=== PATIENT | male | born 1940 | race Caucasian/White ===

== ENCOUNTER 2016-07-15 06:52 | Day surgery (SDC) | payer MEDICARE, OTHER ==
[~2016-07-15 06:52] MED LIST: APIX5TAB PO; CARD360C PO; DILTCD240 PO
[2016-07-15] MEDS ORDERED: VANCOMYCIN 1000 MG/NS 250 ML IV SCH ×2 (07:15)
[2016-07-15] MEDS ORDERED: POVIDONE IODINE 5% (ANTISEPSIS KIT) 4 APPLICATIONS EACH NARE SCH (07:15)
[2016-07-15] MEDS ORDERED: ceFAZolin 2 GM PREMIX 50 ML IV SCH (07:15)
[2016-07-15] MEDS ORDERED: CHLORHEXIDINE GLUCONATE 2 % 1 PACK (2 CLOTHS) TOPICAL SCH (07:15)
[2016-07-15] MEDS ORDERED: MUPIROCIN 2% OINT 1 APPLIC/GM SYR NASAL SCH (07:15)
[2016-07-15] MEDS ORDERED: APIX5TAB PO (07:32)
[2016-07-15] MEDS ORDERED: DILT-60 PO (07:32)
[2016-07-15] MEDS ORDERED: MIDAZOLAM HCL 2 MG/2 ML VIAL ONE (08:10)
[2016-07-15] MEDS ORDERED: HEPARIN-NS/PF INJ 500 ML ONE (08:14)
--- NOTE | 2016-07-15 09:28 | MA ---
cc: LC PANIAGUA MD DATE 07/15/[address] Lc Paniagua PREPROCEDURE DIAGNOSIS Atrial fibrillation diagnosis and management. PROCEDURE PERFORMED 1. Moderate IV sedation. 2. Loop recorder insertion. DESCRIPTION OF PROCEDURE The patient was brought to the cardiac catheterization laboratory in the postabsorptive state after informed consent was obtained. 2 mg of Versed and 50 mcg of fentanyl were given for moderate IV sedation. Next, a Easy[employer] LINQ loop recorder was inserted subcutaneously in the left chest. The patient tolerated the procedure well without any apparent complications. Tachybrady pause and atrial fibrillation detection was enabled. The serial number was [id number]. The initial R-wave was 0.22 mV. Lc Paniagua MD GINNA/ALISONL /8:51 AM /9:20 AM
== END 2016-07-15 09:10 | disposition home or self-care (01) ==
LOC: HDOC 06:52 → HDIC 06:52 → HDOC 09:10
PROVIDERS: ATTEND Nuclear Medicine Nuclear Cardiology
DX: I48.91 Unspecified atrial fibrillation (principal); I48.92 Unspecified atrial flutter; I10 Essential (primary) hypertension; R00.2 Palpitations
CPT/HCPCS: 33282; C1764; J0690; J1644; J2250; J3010

== ENCOUNTER 2017-07-20 08:22 | Emergency (ER) | payer MEDICARE, OTHER ==
[~2017-07-20] VITALS: Ht 190.5 cm; Wt 83.0 kg
[2017-07-20] VITALS (8 sets, daily range): BP systolic 96–119; BP diastolic 63–86; PULSE 80–128; RESP 16; TEMP 98.3; O2SAT 96–97
[~2017-07-20 08:22] MED LIST changes: -CARD360C PO; +DILT120C50 PO; -DILTCD240 PO
[2017-07-20] MEDS ORDERED: METOPROLOL TARTRATE 5 MG/5 ML VIAL IV PUSH PRN (08:45)
[2017-07-20] MEDS ORDERED: SODIUM CHLORIDE 0.9% FLUSH 10 ML FLUSH IVF PRN (08:45)
--- NOTE | 2017-07-20 09:08 | RADRPT ---
EXAM DATE/TIME: 07/20/2017 08:52 [place] COMPARISON: CHEST SINGLE AP, September 30, 2014, 12:41. INDICATIONS : Short of breath. MEDICAL HISTORY : Afib SURGICAL HISTORY : loop recorder ENCOUNTER: Initial ACUITY: 2 days PAIN SCORE: 0/10 LOCATION: Bilateral chest FINDINGS: A single view of the chest demonstrates the lungs to be symmetrically aerated without evidence of mas s, infiltrate or effusion. The cardiomediastinal contours are unremarkable. Osseous structures are intact. CONCLUSION: No acute disease. No significant change has occurred. Ashok Babb MD on July 20, 2017 at 9:04 Board Certified Radiologist. This report was verified electronically.
[2017-07-20] MEDS ORDERED: SODIUM CHLOR 0.9% 1000 ML INJ 1,000 ML IV ONE (09:30)
--- NOTE | 2017-07-20 09:32 | PD ---
HPI . Rapid heartbeat Chief Complaint: Cardiac Complaint Time Seen by Provider: 08:32 Travel History International Travel<30 days: No Contact w/Intl Traveler<30days: No Traveled to known affect area: No History of Present Illness HPI Patient presents with chief complaint of a rapid heartbeat. Onset was yesterday morning. He states that he took his usual medication and went back to bed. Throughout the day yesterday he noticed an occasional "skipped beat but that his heart rate was in an acceptable range. However, he awakened again this morning with a rapid heart rate and presented to us. He has a history of atrial fibrillation with rapid ventricular response. He has had 2 previous ablations. He has had at least one episode of AF with RVR following his latest ablation. He admits to fatigue but denies any chest pain or shortness of breath. He has not noted any modifying factors. Symptoms are mild. PFSH Past Medical History Atrial Fibrillation: Yes Blood Disorders: No Heart Rhythm Problems: Yes Cancer: No Cardiac Catheterization: Yes Cardiovascular Problems: Yes High Cholesterol: No Chemotherapy: No Chest Pain: Yes Congestive Heart Failure: No Endocrine: No Gastrointestinal Disorders: No Genitourinary: No Hypertension: No Immune Disorder: No Musculoskeletal: No Neurologic: No Psychiatric: No Reproductive: No Respiratory: No Radiation Therapy: No Tetanus Vaccination: < 5 Years Influenza Vaccination: Yes PNEUMOCCOCAL Vaccine (Year): 2 Past Surgical History Appendectomy: Yes Cardiac Surgery: Yes (loop recorder, ablation x 2) Tonsillectomy: Yes Other Surgery: No (ABD HERNIA REPAIR WITH MESH) Social History Alcohol Use: Yes (2 beers a day) Tobacco Use: No Substance Use: No Allergies-Medications (Allergen,Severity, Reaction): Coded Allergies: No Known Allergies (Verified Adverse Reaction, Unknown, 07/20/17) Reported Meds & Prescriptions Reported Meds & Active Scripts Active Reported Diltiazem CD 24 HR 120 Mg Caper 240 Mg PO DAILY Eliquis (Apixaban) 5 Mg Tab 5 Mg PO BID Review of Systems Except as stated in HPI: all other systems reviewed are Neg Physical Exam Narrative GENERAL: Awake and alert and in no acute distress. SKIN: warm/dry. Normal color and turgor. HEAD: Normocephalic. Atraumatic. EYES: Pupils equal and round. No scleral icterus. No injection or drainage. ENT: No nasal bleeding or discharge. Mucous membranes pink and moist. NECK: Trachea midline. Full range of motion without pain.. CARDIOVASCULAR: Irregularly irregular rate and rhythm with a heart rate of about 130. RESPIRATORY: No accessory muscle use. Clear to auscultation. Breath sounds equal bilaterally. MUSCULOSKELETAL: No obvious deformities. NEUROLOGICAL: Awake and alert. No obvious cranial nerve deficits. Motor grossly within normal limits. Normal speech. PSYCHIATRIC: Appropriate mood and affect; insight and judgment normal. Data Data Last Documented VS Vital Signs Date Time Temp Pulse Resp B/P (MAP) Pulse Ox O2 Delivery O2 Flow Rate FiO2 07/20/17 09:45 89 16 105/74 (84) 97 Room Air 07/20/17 08:25 98.3 Orders Orders Metoprolol Tartrate Inj (Lopressor Inj) (07/20/17 08:45) Electrocardiogram (07/20/17 08:33) Basic Metabolic Panel (Bmp) (07/20/17 08:33) Complete Blood Count With Diff (07/20/17 08:33) Magnesium (Mg) (07/20/17 08:33) Troponin I (07/20/17 08:33) Chest, Single Ap (07/20/17 08:33) Ecg Monitoring (07/20/17 08:33) Iv Access Insert/Monitor (07/20/17 08:33) Oximetry (07/20/17 08:33) Sodium Chloride 0.9% Flush (Ns Flush) (07/20/17 08:45) Sodium Chlor 0.9% 1000 Ml Inj (Ns 1000 M (07/20/17 09:30) Electrocardiogram (07/20/17 ) Labs Laboratory Tests Test 07/20/17 08:00 White Blood Count 9.1 TH/MM3 Red Blood Count 5.52 MIL/MM3 Hemoglobin 17.4 GM/DL Hematocrit 52.8 % Mean Corpuscular Volume 95.5 FL Mean Corpuscular Hemoglobin 31.4 PG Mean Corpuscular Hemoglobin Concent 32.9 % Red Cell Distribution Width 12.3 % Platelet Count 304 TH/MM3 Mean Platelet Volume 7.4 FL Neutrophils (%) (Auto) 61.4 % Lymphocytes (%) (Auto) 27.6 % Monocytes (%) (Auto) 8.1 % Eosinophils (%) (Auto) 2.7 % Basophils (%) (Auto) 0.2 % Neutrophils # (Auto) 5.7 TH/MM3 Lymphocytes # (Auto) 2.5 TH/MM3 Monocytes # (Auto) 0.7 TH/MM3 Eosinophils # (Auto) 0.2 TH/MM3 Basophils # (Auto) 0.0 TH/MM3 CBC Comment DIFF FINAL Differential Comment Blood Urea Nitrogen 25 MG/DL Creatinine 1.20 MG/DL Random Glucose 130 MG/DL Calcium Level 9.5 MG/DL Magnesium Level 2.5 MG/DL Sodium Level 144 MEQ/L Potassium Level 3.9 MEQ/L Chloride Level 110 MEQ/L Carbon Dioxide Level 27.7 MEQ/L Anion Gap 6 MEQ/L Estimat Glomerular Filtration Rate 59 ML/MIN Troponin I LESS THAN 0.02 NG/ML MDM Medical Decision Making Medical Screen Exam Complete: Yes Emergency Medical Condition: Yes Medical Record Reviewed: Yes (h/o AF. meds include Cardizem and Eliquis.) Interpretation(s) EKG shows atrial flutter with a ventricular response of about 130. Repeat EKG shows atrial flutter with a rate of 87. Differential Diagnosis Differential diagnosis of tachycardia includes but is not limited to PSVT, atrial fibrillation with a rapid ventricular response, sinus tachycardia (due to hypovolemia, anemia, thyrotoxicosis, PE) Narrative Course This patient presented with atrial flutter with a rapid ventricular response. Metoprolol was ordered. However, his blood pressure was low. A fluid bolus was ordered. However, his heart rate has now normalized. We will get a repeat EKG. The rhythm is difficult to interpret on the rhythm strip because of artifact. Repeat EKG continues to show atrial flutter but now with a controlled rate at around 80. CBC & BMP Diagram 07/20/17 08:00 Calcium Level 9.5, Magnesium Level 2.5 Troponin < 0.02 The atrial flutter has persisted. The patient reports that he is usually in a sinus rhythm. He is on Eliquis. He would like to go home. 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 I believe that it is safe for him to go home. Physician Communication Physician Communication Dr. Paniagua requests that I increase his Cardizem to 360 mg per day. He will see the patient in the office. Diagnosis Primary Impression: Atrial flutter with rapid ventricular response Patient Instructions: Atrial Flutter (DC), General Instructions Med/Other Pt SpecificInfo: Prescription(s) given Scripts Diltiazem CD 24 HR (Cardizem CD 24 HR) 360 Mg Caper 360 MG PO DAILY, #30 CAP 0 Refills Prov: Carmen Yarbrough MD 07/20/17 Disposition: 01 DISCHARGE HOME Condition: Stable Carmen Yarbrough MD July 20, 2017 09:32
[2017-07-20 09:46] LABS: AUTOMATED NEUTROPHIL # 5.7 TH/MM3 (1.8-7.7); BASOPHIL % 0.2 % (0.0-2.0); EOSINOPHIL # 0.2 TH/MM3 (0-0.4); EOSINOPHIL % 2.7 % (0.0-4.0); HEMATOCRIT 52.8 % (39.0-51.0); HEMOGLOBIN 17.4 GM/DL (13.0-17.0); LYMPH % 27.6 % (9.0-44.0); LYMPHOCYTE # 2.5 TH/MM3 (1.0-4.8); MEAN CELL VOLUME 95.5 FL (80.0-100.0); MEAN CORPUSCULAR HEMOGLOBIN 31.4 PG (27.0-34.0); MEAN CORPUSCULAR HGB CONC 32.9 % (32.0-36.0); MEAN PLATELET VOLUME 7.4 FL (7.0-11.0); MONO % 8.1 % (0.0-8.0); MONOCYTE # 0.7 TH/MM3 (0-0.9); NEUT % 61.4 % (16.0-70.0); PLATELET COUNT 304 TH/MM3 (150-450); RED BLOOD COUNT 5.52 MIL/MM3 (4.50-5.90); RED CELL DISTRIBUTION WIDTH 12.3 % (11.6-17.2); WHITE BLOOD COUNT 9.1 TH/MM3 (4.0-11.0)
[2017-07-20 10:16] LABS: CALCIUM 9.5 MG/DL (8.5-10.1)
[2017-07-20 10:17] LABS: BICARBONATE 27.7 MEQ/L (21.0-32.0); GLUCOSE,RANDOM 130 MG/DL (74-106); MAGNESIUM 2.5 MG/DL (1.5-2.5)
[2017-07-20 10:20] LABS: GLOMERULAR FILTRATION RATE 59 ML/MIN (>89)
[2017-07-20 10:23] LABS: CHLORIDE 110 MEQ/L (98-107); SODIUM (NA) 144 MEQ/L (136-145)
[2017-07-20 10:25] LABS: BLOOD UREA NITROGEN 25 MG/DL (7-18); TROPONIN I LESS THAN 0.02 NG/ML (0.02-0.05)
[2017-07-20] MEDS ORDERED: CARD360C PO (10:45)
[2017-07-20] MEDS ORDERED: CARD120C4 PO (10:48)
--- NOTE | 2017-07-21 11:44 | EKG ---
Date Performed: 07/20/2017 Time Performed: 09:38:18 PTAGE: 76 years EKG: ATRIAL FLUTTER/TACHYCARDIA POSSIBLE RIGHT VENTRICULAR CONDUCTION DELAY INFERIOR MYOCARDIAL INFARCTION ABNORMAL ECG PREVIOUS TRACING : 07/20/2017 08.32 DOCTOR: Mini Us Interpretating Date/Time 07/21/2017 11:42:57
--- NOTE | 2017-07-21 11:47 | EKG ---
Date Performed: 07/20/2017 Time Performed: 08:32:37 PTAGE: 76 years EKG: ATRIAL FLUTTER/TACHYCARDIA WITH RAPID VENTRICULAR RESPONSE WITH ABERRANT CONDUCTION OR VENT RICULAR PREMATURE COMPLEXES POSSIBLE RIGHT VENTRICULAR CONDUCTION DELAY INFERIOR MYOCARDIAL INFARCTIO N ST DEPRESSION, CONSIDER SUBENDOCARDIAL INJURY ABNORMAL ECG INTERPRETATION BASED ON A DEFAULT AGE OF 38 YEARS PREVIOUS TRACING : 12/25/2015 04.46 DOCTOR: Mini Us Interpretating Date/Time 07/21/2017 11:44:14
== END 2017-07-20 11:19 | disposition home or self-care (01) ==
LOC: PHED 08:22
DX: I48.92 Unspecified atrial flutter (principal); I48.91 Unspecified atrial fibrillation
CPT/HCPCS: 71045; 80048; 83735; 84484; 85025; 93005; 96360; 99285; J7030

== ENCOUNTER → 2017-08-02 | Day surgery (SDC) | payer MEDICARE, OTHER ==
[~2017-08-02] MED LIST changes: +ACETAMINOPHEN 1000 MG/100 ML 100 ML IV ONE; +BUPIVACAINE HCL PF 0.25% 30 ML VIAL ONE; +CARD120C4 PO; +CARD360C PO; -DILT120C50 PO; +KETOROLAC TROMETHAMINE 30 MG/ML (IVP) VIAL IV PUSH ONE; +LACTATED RINGER'S 1000 ML INJ 1,000 ML ONE; +PROPOFOL 200 MG/20 ML AMP IV ONE; +VANCOMYCIN HCL 1000 MG VIAL ONE; +ceFAZolin INJ 1,000 MG VIAL ONE
--- NOTE | 2017-08-02 19:56 | MP ---
cc: Jamal Carmona MD DATE OF OPERATION: 08/02/2017 DATE OF PROCEDURE: 08/02/2017 PROCEDURES PERFORMED: 1. Laparoscopic recurrent left inguinal hernia repair with mesh. 2. 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 PREOPERATIVE DIAGNOSIS: Reducible, recurrent left inguinal hernia. POSTOPERATIVE DIAGNOSES: 1. Direct and indirect, reducible left inguinal hernia. 2. Lipoma of the spermatic cord. ANESTHESIA: General endotracheal. SURGEON: Jamal Carmona MD ESTIMATED BLOOD LOSS: 20 mL FLUIDS: 950 mL crystalloid. COMPLICATIONS: None. DRAINS: None. SPECIMENS: Lipoma of the spermatic cord to pathology. PROCEDURE IN DETAIL: The patient was seen in the holding area and the left groin marked by the undersigned and confirmed by the patient. He was taken to the operating room and placed on the operating table in the supine position. After an adequate level of general endotracheal anesthesia was achieved, the lower abdomen and groin were shaved, prepped and draped. A timeout was taken, confirming the correct patient, site and procedure to be performed. The skin and subcutaneous tissue was infiltrated with local anesthetic and an incision made in the umbilicus and carried through the fascia sharply. The peritoneal cavity was directly visualized. A 12-mm balloon trocar was inserted and the balloon inflated. The abdomen was insufflated. The patient was placed in Trendelenburg position. A 12-mm trocar was placed in the left lower quadrant and a 5 mm trocar in the right lower quadrant. Both entered the abdominal cavity under direct vision uneventfully. The peritoneum on the left side was incised and peeled downward. The hernia sac was reduced, which appeared to be an indirect hernia sac. Further dissection medial to the epigastric vessels revealed a small direct hernia defect as well. Krunal's ligament was dissected free from the surrounding loose fatty areolar tissue, as was the tissue off of the anterior abdominal wall. The fascia was swept free from any fatty material until all was clear for angela. A window was created behind the spermatic cord structures. A lipoma of the cord was noted and this was reduced from the indirect hernia defect. This was easily teased off of the spermatic cord structures and submitted for specimen analysis. This allowed for substantial reduction in the diameter of the spermatic cord structures to minimize the risk of recurrence. A 6 x 6 inch piece of Ultrapro mesh was trimmed down to approximately 4 x 6 inches, the edges were rounded, and the mesh was slit longitudinally. The mesh was placed into the pelvis with the inferior leaf brought under the spermatic cord structures. The mesh was then fixed to Krunal's ligament with 4.0 mm angela and then to the transversalis fascia with 4.8 mm angela. The mesh was reapproximated laterally with three 4.8 mm angela. The hernia defect was seen to be completely surrounded by at least 3-5 cm of mesh beyond the edge of any visible defect. When this had been completed, then with hemostasis assured, insufflation was decreased and the peritoneum reapproximated with 4.8 mm angela. When this was completed, insufflation was discontinued and the left and right lower quadrant ports were removed under direct vision. No bleeding was noted from the port sites during desufflation. The laparoscope and umbilical port were then removed. The fascia was closed in the left lower quadrant trocar site with 0 Vicryl suture in a [id number] fashion and then the umbilicus with both 0 Vicryl in a simple interrupted and [id number] fashion. Local anesthetic was injected into the left groin and into the trocar sites before closure of the skin. All 3 trocar sites were closed at the skin with 4-0 Vicryl in interrupted buried fashion. All trocar sites were dressed with Steri-Strips. The patient was extubated and taken back to the recovery room in stable condition. He tolerated the procedure well. MD LEON Caceres/MELISSA/johnnie , 05:12 PM , 05:51 PM BIBI
== END | disposition home or self-care (01) ==
LOC: ESDC 08:10
PROVIDERS: ATTEND Surgery Trauma Surgery
DX: K40.91 Unilateral inguinal hernia, without obstruction or gangrene, recurrent (principal); D17.6 Benign lipomatous neoplasm of spermatic cord
CPT/HCPCS: 00840; 49651; 88304; C1781; J0131; J0690; J1885; J3010; J3370; J7120

== ENCOUNTER 2017-08-08 10:28 | Inpatient (IN) | payer MEDICARE, OTHER ==
[2017-08-08] VITALS (7 sets, daily range): BP systolic 127–156; BP diastolic 66–87; PULSE 60–77; RESP 16–20; TEMP 98.9–102.1; O2SAT 96–97
[~2017-08-08] VITALS: Ht 190.5 cm; Wt 83.4 kg
[~2017-08-08 10:28] MED LIST changes: -ACETAMINOPHEN 1000 MG/100 ML 100 ML IV ONE; -BUPIVACAINE HCL PF 0.25% 30 ML VIAL ONE; -KETOROLAC TROMETHAMINE 30 MG/ML (IVP) VIAL IV PUSH ONE; -LACTATED RINGER'S 1000 ML INJ 1,000 ML ONE; -PROPOFOL 200 MG/20 ML AMP IV ONE; -VANCOMYCIN HCL 1000 MG VIAL ONE; -ceFAZolin INJ 1,000 MG VIAL ONE
[2017-08-08] MEDS ORDERED: DILT-46 PO (11:14)
[2017-08-08 11:19] LABS: BILIRUBIN, URINE NEG (NEG); BLOOD, URINE LARGE (NEG); GLUCOSE,URINE NEG (NEG); KETONE, URINE NEG (NEG); NITRITE,URINE POS (NEG); URINE LEUKOCYTE ESTERASE SMALL (NEG)
[2017-08-08 11:22] LABS: URINE COLOR RED (YELLW/STRAW)
[2017-08-08 11:24] LABS: RBC, URINE INNUM /hpf (0-3)
[2017-08-08] MEDS ORDERED: LIDOCAINE 2% JELLY 30 ML TUBE TOPICAL ONE (11:30)
--- NOTE | 2017-08-08 11:37 | PD ---
HPI Chief Complaint: Complaint Time Seen by Provider: 11:20 Travel History International Travel<30 days: No Contact w/Intl Traveler<30days: No Traveled to known affect area: No History of Present Illness HPI 76-year-old male complains of dysuria, frequency, hematuria and urinary retention. Patient status post laparoscopic left inguinal hernia repair with mesh and excision of lipoma on the spermatic cord by Dr. Carmona on August 02, 2017. Patient had Ellington cath inserted for the procedure. Patient had Ellington cath removal yesterday by Dr. Carmona. Patient started having dysuria, frequency last night. Patient started having material since this morning. Patient states that he has decrease in urine output and feeling the bladder distended. Patient denies any headache. Patient denies any chest pain or shortness of breath. Patient states that he has mild discomfort on the abdomen suprapubic area. Patient denies any back pain. Patient denies any fever chills. Patient has history of atrial fibrillation and on Eliquis. Patient stopped taking Eliquis several days prior to the surgery and resume taking Eliquis the day after surgery. Last dose of Eliquis was this morning. PFSH Past Medical History Atrial Fibrillation: Yes Blood Disorders: No Heart Rhythm Problems: Yes Cancer: No Cardiac Catheterization: Yes Cardiovascular Problems: Yes High Cholesterol: No Chemotherapy: No Chest Pain: Yes Congestive Heart Failure: No Diminished Hearing: Yes Endocrine: No Gastrointestinal Disorders: No Genitourinary: No Hypertension: No Immune Disorder: No Musculoskeletal: No Neurologic: No Psychiatric: No Reproductive: No Respiratory: No Radiation Therapy: No Tetanus Vaccination: < 5 Years Influenza Vaccination: Yes PNEUMOCCOCAL Vaccine (Year): 2 ?: Not Past Surgical History Appendectomy: Yes Cardiac Surgery: Yes (loop recorder, ablation x 2) Tonsillectomy: Yes Other Surgery: Yes (ABD HERNIA REPAIR WITH MESH) Social History Alcohol Use: Yes (2 beers a day) Tobacco Use: No Substance Use: No Allergies-Medications (Allergen,Severity, Reaction): Coded Allergies: No Known Allergies (Verified Adverse Reaction, Unknown, 08/08/17) Reported Meds & Prescriptions Reported Meds & Active Scripts Active Reported Diltiazem ER 24 HR 360 Mg Caper 360 Mg PO DAILY Eliquis (Apixaban) 5 Mg Tab 5 Mg PO BID Review of Systems General / Constitutional: No: Fever Eyes: No: Visual changes HENT: No: Headaches Cardiovascular: No: Chest Pain or Discomfort Respiratory: No: Shortness of Breath Gastrointestinal: Positive: Abdominal Pain Genitourinary: Positive: Frequency, Dysuria, Hematuria Musculoskeletal: No: Pain Skin: No Rash Neurologic: No: Weakness Psychiatric: No: Depression Endocrine: No: Polydipsia Hematologic/Lymphatic: No: Easy Bruising Physical Exam Narrative GENERAL: Well-nourished, well-developed patient. SKIN: Focused skin assessment warm/dry. HEAD: Normocephalic. EYES: No scleral icterus. No injection or drainage. NECK: Supple, trachea midline. No JVD or lymphadenopathy. CARDIOVASCULAR: Regular rate and rhythm without murmurs, gallops, or rubs. RESPIRATORY: Breath sounds equal bilaterally. No accessory muscle use. GASTROINTESTINAL: Abdomen soft, non-tender, nondistended. MUSCULOSKELETAL: No cyanosis, or edema. BACK: Nontender without obvious deformity. No CVA tenderness. exam: Patient has some reddish stained underwear. No active bleeding from the urethra. Bladder distended on percussion. No tenderness on palpation of testicle or scrotum. No penile lesion noted. Neurologic exam normal. Data Data Last Documented VS Vital Signs Date Time Temp Pulse Resp B/P (MAP) Pulse Ox O2 Delivery O2 Flow Rate FiO2 08/08/17 12:03 60 18 144/69 (94) 96 Room Air 08/08/17 10:37 98.9 Orders Orders Urinalysis - C+S If Indicated (08/08/17 10:42) Urine Culture (08/08/17 11:10) Complete Blood Count With Diff (08/08/17 11:28) Comprehensive Metabolic Panel (08/08/17 11:28) Iv Access Insert/Monitor (08/08/17 11:28) Ecg Monitoring (08/08/17 11:28) Oximetry (08/08/17 11:28) Urinary Catheter Insert/Apply (08/08/17 11:28) Lidocaine 2% Jelly (Xylocaine 2% Jelly) (08/08/17 11:30) Electrocardiogram (08/08/17 ) Sodium Chlor 0.9% 1000 Ml Inj (Ns 1000 M (08/08/17 12:30) Prothrombin Time / Inr (Pt) (08/08/17 12:44) Act Partial Throm Time (Ptt) (08/08/17 12:44) Labs Laboratory Tests Test 08/08/17 11:10 08/08/17 11:41 Urine Collection Type CLEAN CATCH Urine Color RED Urine Turbidity MARKED Urine pH 7.0 Urine Specific [place] 1.025 Urine Protein 300 OR GREATER mg/dL Urine Glucose (UA) NEG mg/dL Urine Ketones NEG mg/dL Urine Occult Blood LARGE Urine Nitrite POS Urine Bilirubin NEG Urine Urobilinogen 0.2 MG/DL Urine Leukocyte Esterase SMALL Urine RBC INNUM /hpf Urine WBC 50-99 /hpf Microscopic Urinalysis Comment CULTURE INDICATED White Blood Count 12.9 TH/MM3 Red Blood Count 4.99 MIL/MM3 Hemoglobin 14.8 GM/DL Hematocrit 47.5 % Mean Corpuscular Volume 95.2 FL Mean Corpuscular Hemoglobin 29.7 PG Mean Corpuscular Hemoglobin Concent 31.2 % Red Cell Distribution Width 12.1 % Platelet Count 292 TH/MM3 Mean Platelet Volume 6.6 FL Neutrophils (%) (Auto) 81.5 % Lymphocytes (%) (Auto) 8.9 % Monocytes (%) (Auto) 5.2 % Eosinophils (%) (Auto) 0.9 % Basophils (%) (Auto) 3.5 % Neutrophils # (Auto) 10.4 TH/MM3 Lymphocytes # (Auto) 1.2 TH/MM3 Monocytes # (Auto) 0.7 TH/MM3 Eosinophils # (Auto) 0.1 TH/MM3 Basophils # (Auto) 0.5 TH/MM3 CBC Comment AUTO DIFF Differential Comment AUTO DIFF CONFIRMED Blood Urea Nitrogen 19 MG/DL Creatinine 1.00 MG/DL Random Glucose 121 MG/DL Total Protein 7.4 GM/DL Albumin 3.5 GM/DL Calcium Level 9.2 MG/DL Alkaline Phosphatase 67 U/L Aspartate Amino Transf (AST/SGOT) 18 U/L Alanine Aminotransferase (ALT/SGPT) 36 U/L Total Bilirubin 0.9 MG/DL Sodium Level 140 MEQ/L Potassium Level 4.6 MEQ/L Chloride Level 106 MEQ/L Carbon Dioxide Level 29.7 MEQ/L Anion Gap 4 MEQ/L Estimat Glomerular Filtration Rate 72 ML/MIN MDM Medical Decision Making Medical Screen Exam Complete: Yes Emergency Medical Condition: Yes Interpretation(s) 12:43 PM. CBC WBC 12.9. 81 neutrophil. CMP BUN 19. GFR 72. UA positive for RBC, WBC. Differential Diagnosis Differential diagnosis including urethritis, UTI, hematuria, bladder outlet obstruction. Narrative Course 76-year-old male with dysuria, frequency, hematuria and bladder obstruction. Patient is on Eliquis for paroxysmal atrial fibrillation. Ellington cath applied. Normal saline solution 100 cc an hour. Ellington cath inserted. Patient has 300 cc of gross hematuria. Dr. Carmona contacted. Advised medical service and urology consultation. I spoke with Dr. Faustin urologist. I spoke with Dr. 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 Advised to hold Eliquis. Check serial H& H. Advised [facility] if persistent excessive bleeding. Diagnosis Primary Impression: Hematuria Qualified Codes: R31.0 - Gross hematuria Additional Impression: Paroxysmal atrial fibrillation Kingsley Roman MD Aug 08, 2017 11:37
[2017-08-08 11:50] LABS: AUTOMATED NEUTROPHIL # 10.4 TH/MM3 (1.8-7.7); BASOPHIL # 0.5 TH/MM3 (0-0.2); BASOPHIL % 3.5 % (0.0-2.0); EOSINOPHIL # 0.1 TH/MM3 (0-0.4); EOSINOPHIL % 0.9 % (0.0-4.0); HEMATOCRIT 47.5 % (39.0-51.0); HEMOGLOBIN 14.8 GM/DL (13.0-17.0); LYMPH % 8.9 % (9.0-44.0); LYMPHOCYTE # 1.2 TH/MM3 (1.0-4.8); MEAN CELL VOLUME 95.2 FL (80.0-100.0); MEAN CORPUSCULAR HEMOGLOBIN 29.7 PG (27.0-34.0); MEAN CORPUSCULAR HGB CONC 31.2 % (32.0-36.0); MEAN PLATELET VOLUME 6.6 FL (7.0-11.0); MONO % 5.2 % (0.0-8.0); MONOCYTE # 0.7 TH/MM3 (0-0.9); NEUT % 81.5 % (16.0-70.0); PLATELET COUNT 292 TH/MM3 (150-450); RED BLOOD COUNT 4.99 MIL/MM3 (4.50-5.90); RED CELL DISTRIBUTION WIDTH 12.1 % (11.6-17.2); WHITE BLOOD COUNT 12.9 TH/MM3 (4.0-11.0)
[2017-08-08 11:58] LABS: CHLORIDE 106 MEQ/L (98-107); SODIUM (NA) 140 MEQ/L (136-145)
[2017-08-08 12:02] LABS: ALBUMIN 3.5 GM/DL (3.4-5.0); BICARBONATE 29.7 MEQ/L (21.0-32.0); BLOOD UREA NITROGEN 19 MG/DL (7-18); CALCIUM 9.2 MG/DL (8.5-10.1); GLUCOSE,RANDOM 121 MG/DL (74-106)
[2017-08-08 12:05] LABS: ALT (GPT) 36 U/L (12-78); AST (GOT) 18 U/L (15-37); GLOMERULAR FILTRATION RATE 72 ML/MIN (>89)
[2017-08-08 12:07] LABS: TOTAL BILIRUBIN ADULT 0.9 MG/DL (0.2-1.0); TOTAL PROTEIN 7.4 GM/DL (6.4-8.2)
[2017-08-08 12:08] LABS: ALKALINE PHOSPHATASE 67 U/L (45-117)
[2017-08-08] MEDS ORDERED: SODIUM CHLOR 0.9% 1000 ML INJ 1,000 ML IV SCH (12:30)
[2017-08-08 13:20] LABS: INTERNATIONAL NORMALIZED RATIO 1.1 RATIO; PROTHROMBIN TIME - PATIENT 10.8 SEC (9.8-11.6)
[2017-08-08] MEDS ORDERED: BISACODYL 10 MG SUPP RECTAL PRN (13:30)
[2017-08-08] MEDS ORDERED: SENNOSIDES 8.6 MG TAB PO PRN (13:30)
[2017-08-08] MEDS ORDERED: SODIUM CHLORIDE 0.9% FLUSH 10 ML FLUSH IV FLUSH PRN (13:30)
[2017-08-08] MEDS ORDERED: TEMAZEPAM 15 MG CAP PO PRN (13:30)
[2017-08-08] MEDS ORDERED: LACTULOSE SYRUP 20 GM/30 ML CUP PO PRN (13:30)
[2017-08-08] MEDS ORDERED: cefTRIAXone INJ 1,000 MG in SODIUM CHLORIDE 0.9% INJ 100 ML IV ONE (13:30)
[2017-08-08] MEDS ORDERED: MAGNESIUM HYDROXIDE SUSP 30 ML CUP PO PRN (13:30)
[2017-08-08] MEDS ORDERED: NALOXONE HCL 0.4 MG/ML AMP IV PUSH PRN (13:30)
[2017-08-08] MEDS ORDERED: ONDANSETRON HCL 4 MG/2 ML VIAL IVP PRN (13:30)
[2017-08-08] MEDS: SODIUM CHLOR 0.45% 1000 ML INJ 1,000 ML IV SCH (13:52)
[2017-08-08] MEDS: TAMSULOSIN HCL 0.4 MG CAP PO SCH (14:03)
--- NOTE | 2017-08-08 14:16 | PD.CONS ---
[facility] Service Urology Consult Requested By Dr. Roman Reason for Consult Gross hematuria Primary Care Physician Becca Andrews MD Diagnosis: History of Present Illness 76-year-old gentleman with no prior urologic history who presents now with gross hematuria. Patient does have a history of atrial fibrillation and has been on anticoagulation therapy with Eliquis. He underwent a left inguinal hernia repair 1 week ago and postoperatively developed urinary retention that required insertion of a Ellington catheter. Patient followed up with his general surgeon yesterday and had his Ellington catheter removed. The patient reports that initially he was voiding without any problems however during the course of the night he developed dysuria and progressive difficulty with urination. By this morning he noted grossly bloody urine and presented to the emergency room for evaluation. His ground water pump installer has already been consulted and he agreed that the patient should stop the Eliquis for the time being as he is presently in normal sinus rhythm. At the time of the urologic consultation the patient did have an indwelling Ellington catheter which was draining medium red colored urine. Upon further questioning the patient denies any prior history of hematuria or other urologic disorders. Review of Systems Constitutional: DENIES: Fever, Chills Cardiovascular: DENIES: Chest pain Gastrointestinal: DENIES: Abdominal pain Genitourinary: COMPLAINS OF: Urgency, Hematuria Musculoskeletal: DENIES: Back pain Except as stated in HPI: all other systems reviewed are Neg Past Family Social History Past Medical History Atrial fibrillation Past Surgical History Status post recent left inguinal herniorrhaphy Status post cardiac ablation procedure 2 Status post right inguinal hernia repair Status post appendectomy Status post tonsillectomy Reported Medications Refer to EMR Allergies: Coded Allergies: No Known Allergies (Verified Adverse Reaction, Unknown, 08/08/17) Active Ordered Medications Refer to EMR Family History Alzheimer's disease Social History Denies tobacco, alcohol or intravenous drug abuse history Physical Exam Vital Signs Date Time Temp Pulse Resp B/P (MAP) Pulse Ox O2 Delivery O2 Flow Rate FiO2 08/08/17 13:26 63 18 140/70 (93) 97 Room Air 08/08/17 12:03 60 18 144/69 (94) 96 Room Air 08/08/17 11:43 96 Room Air 08/08/17 10:59 18 08/08/17 10:37 98.9 72 16 156/87 (110) 97 Physical Exam GENERAL: This is a well-nourished, well-developed patient, in no apparent distress. SKIN: No rashes, ecchymoses or lesions. Cool and dry. HEAD: Atraumatic. Normocephalic. No temporal or scalp tenderness. EYES: Pupils equal round and reactive. Extraocular motions intact. No scleral icterus. No injection or drainage. ENT: Nose without bleeding, purulent drainage or septal hematoma. Throat without erythema, tonsillar hypertrophy or exudate. Uvula midline. Airway patent. NECK: Trachea midline. No JVD or lymphadenopathy. Supple, nontender, no meningeal signs. CARDIOVASCULAR: Regular rate and rhythm without murmurs, gallops, or rubs. RESPIRATORY: Clear to auscultation. Breath sounds equal bilaterally. No wheezes , rales, or rhonchi. GASTROINTESTINAL: Abdomen soft, non-tender, nondistended. No hepato-splenomegaly , or palpable masses. No guarding. GENITOURINARY:Ellington in place draining medium red urine, bladder not distended MUSCULOSKELETAL: Extremities without clubbing, cyanosis, or edema. No joint tenderness, effusion, or edema noted. No calf tenderness. Negative Homans sign bilaterally. NEUROLOGICAL: Awake and alert. Cranial nerves II through XII intact. Motor and sensory grossly within normal limits. Five out of 5 muscle strength in all muscle groups. Normal speech. Lab results reviewed: Yes Laboratory Tests Test 08/08/17 11:10 08/08/17 11:41 Urine Collection Type CLEAN CATCH Urine Color RED Urine Turbidity MARKED Urine pH 7.0 Urine Specific [place] 1.025 Urine Protein 300 OR GREATER Urine Glucose (UA) NEG Urine Ketones NEG Urine Occult Blood LARGE Urine Nitrite POS Urine Bilirubin NEG Urine Urobilinogen 0.2 Urine Leukocyte Esterase SMALL Urine RBC INNUM Urine WBC 50-99 Microscopic Urinalysis Comment CULTURE INDICATED White Blood Count 12.9 Red Blood Count 4.99 Hemoglobin 14.8 Hematocrit 47.5 Mean Corpuscular Volume 95.2 Mean Corpuscular Hemoglobin 29.7 Mean Corpuscular Hemoglobin Concent 31.2 Red Cell Distribution Width 12.1 Platelet Count 292 Mean Platelet Volume 6.6 Neutrophils (%) (Auto) 81.5 Lymphocytes (%) (Auto) 8.9 Monocytes (%) (Auto) 5.2 Eosinophils (%) (Auto) 0.9 Basophils (%) (Auto) 3.5 Neutrophils # (Auto) 10.4 Lymphocytes # (Auto) 1.2 Monocytes # (Auto) 0.7 Eosinophils # (Auto) 0.1 Basophils # (Auto) 0.5 CBC Comment AUTO DIFF Differential Comment AUTO DIFF CONFIRMED Prothrombin Time 10.8 Prothromb Time International Ratio 1.1 Activated Partial Thromboplast Time 27.0 Blood Urea Nitrogen 19 Creatinine 1.00 Random Glucose 121 Total Protein 7.4 Albumin 3.5 Calcium Level 9.2 Alkaline Phosphatase 67 Aspartate Amino Transf (AST/SGOT) 18 Alanine Aminotransferase (ALT/SGPT) 36 Total Bilirubin 0.9 Sodium Level 140 Potassium Level 4.6 Chloride Level 106 Carbon Dioxide Level 29.7 Anion Gap 4 Estimat Glomerular Filtration Rate 72 Date/Time Source Procedure Growth Status 08/08/17 11:10 Urine Clean Catch Urine Culture Pending Received Result Diagram: 08/08/17 1141 08/08/17 1141 Assessment and Plan Assessment and Plan UROLOGIC IMPRESSION: 1. Gross hematuria of indeterminant etiology exacerbated by Eliquis 2. Recent development postoperative urinary retention RECOMMENDATIONS: 1. DC Eliquis and resume only after urine remains yellow in appearance for 48 hours 2. Maintain Ellington to gravity and irrigate prn clots 3. DC Ellington (can be performed at my office) after urine remains yellow in appearance for 48 to 72 hours 4. Flomax 0.4mg po daily Johnathon Faustin MD Aug 08, 2017 14:16
--- NOTE | 2017-08-08 16:17 | HHI.HP ---
[facility] Becca Andrews MD Admission Diagnosis Gross hematuria. Paroxysmal atrial fibrillation. Diagnoses: (1) Hematuria Diagnosis: Principal Chief Complaint: Urinating blood Travel History International Travel<30 Days: No Contact w/Intl Traveler <30 Da: No Traveled to Known Affected Are: No History of Present Illness 76-year-old male with known history of atrial fibrillation on anticoagulation, who underwent recent surgery by Dr. 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 Prior to discharge from the hospital after surgery patient was unable to urinate with outlet obstruction. Patient had Ellington catheter remain in place for approximately 5 days and they followed up with Dr. Carmona last evening at 7 PM. The Ellington was removed at that time and the patient went home without any complications. Patient indicates that he was urinating fine but throughout the evening started developing more burning sensation on urination. And then this morning when he got up he noticed that he was urinating blood so he called his physician who notified him to go to the emergency department for evaluation. Patient did have workup done which did show gross hematuria. Ellington catheter was reinserted. An ER physician recommended that the patient be observed in the hospital for further evaluation and management. Urology was consulted for further recommendations. Review of Systems Genitourinary: COMPLAINS OF: Hematuria, Dysuria Except as stated in HPI: all other systems reviewed are Neg Past Family Social History Past Medical History Atrial fibrillation Past Surgical History Tonsillectomy Appendectomy Loop recorder placement Cardiac ablation 2 Cardiac catheterization Right inguinal hernia repair 8 years ago Left inguinal hernia repair 08/02/17 Reported Medications Reported Meds & Active Scripts Active Reported Diltiazem ER 24 HR 360 Mg Caper 360 Mg PO DAILY Eliquis (Apixaban) 5 Mg Tab 5 Mg PO BID Allergies: Coded Allergies: No Known Allergies (Verified Adverse Reaction, Unknown, 08/08/17) Family History Family history was reviewed and his mother lived to 99 years old with Alzheimer. Father in his 80s Social History Patient denies any tobacco, alcohol or illicit drug use Physical Exam Vital Signs Vital Signs Date Time Temp Pulse Resp B/P (MAP) Pulse Ox O2 Delivery O2 Flow Rate FiO2 08/08/17 15:10 99.3 62 20 154/70 (98) 97 08/08/17 14:47 64 18 97 08/08/17 13:26 63 18 140/70 (93) 97 Room Air 08/08/17 12:03 60 18 144/69 (94) 96 Room Air 08/08/17 11:43 96 Room Air 08/08/17 10:59 18 08/08/17 10:37 98.9 72 16 156/87 (110) 97 Physical Exam GENERAL: Well-developed, well-nourished, in no acute distress. alert and orientated HEENT: Head is normocephalic without any lesions or masses noted. Facial features are symmetric. Eyes: Pupils equal round reactive to light. Extraocular muscles are intact. Conjunctivae were clear. Oropharyngeal: Pharynx without any erythema edema. Tongue is midline without deviation. Buccal mucosa is moist without any masses or lesions NECK: Supple without any masses. Trachea midline no deviation. No JVD, no bruits are appreciated CARDIAC: Regular rhythm, regular rate. S1/S2 are heard. No murmurs gallops or rubs. LUNGS: Clear to auscultation bilaterally. No wheeze, rhonchi or rales. No use of accessory muscles on inspiration or expiration. ABDOMEN: Soft, nontender. Nondistended. Bowel sounds heard in all 4 quadrants. No organomegaly or masses. Negative rebound, negative guarding, Ellington in place with obvious hematuria and clots EXTREMITIES: No edema, pulses are equal bilaterally. No cyanosis or clubbing NEUROLOGY: Mood and affect appear appropriate. Cranial nerves II through XII grossly intact. Muscle strength 5/5 in upper and lower extremities bilaterally. Deep tendon reflexes are 2+ in upper and lower extremities bilaterally. Laboratory Laboratory Tests Test 08/08/17 11:10 08/08/17 11:41 Urine Collection Type CLEAN CATCH Urine Color RED Urine Turbidity MARKED Urine pH 7.0 Urine Specific [place] 1.025 Urine Protein 300 OR GREATER Urine Glucose (UA) NEG Urine Ketones NEG Urine Occult Blood LARGE Urine Nitrite POS Urine Bilirubin NEG Urine Urobilinogen 0.2 Urine Leukocyte Esterase SMALL Urine RBC INNUM Urine WBC 50-99 Microscopic Urinalysis Comment CULTURE INDICATED White Blood Count 12.9 Red Blood Count 4.99 Hemoglobin 14.8 Hematocrit 47.5 Mean Corpuscular Volume 95.2 Mean Corpuscular Hemoglobin 29.7 Mean Corpuscular Hemoglobin Concent 31.2 Red Cell Distribution Width 12.1 Platelet Count 292 Mean Platelet Volume 6.6 Neutrophils (%) (Auto) 81.5 Lymphocytes (%) (Auto) 8.9 Monocytes (%) (Auto) 5.2 Eosinophils (%) (Auto) 0.9 Basophils (%) (Auto) 3.5 Neutrophils # (Auto) 10.4 Lymphocytes # (Auto) 1.2 Monocytes # (Auto) 0.7 Eosinophils # (Auto) 0.1 Basophils # (Auto) 0.5 CBC Comment AUTO DIFF Differential Comment AUTO DIFF CONFIRMED Prothrombin Time 10.8 Prothromb Time International Ratio 1.1 Activated Partial Thromboplast Time 27.0 Blood Urea Nitrogen 19 Creatinine 1.00 Random Glucose 121 Total Protein 7.4 Albumin 3.5 Calcium Level 9.2 Alkaline Phosphatase 67 Aspartate Amino Transf (AST/SGOT) 18 Alanine Aminotransferase (ALT/SGPT) 36 Total Bilirubin 0.9 Sodium Level 140 Potassium Level 4.6 Chloride Level 106 Carbon Dioxide Level 29.7 Anion Gap 4 Estimat Glomerular Filtration Rate 72 Date/Time Source Procedure Growth Status 08/08/17 11:10 Urine Clean Catch Urine Culture Pending Received Result Diagram: 08/08/17 1141 08/08/17 1141 Caprini VTE Risk Assessment Caprini VTE Risk Assessment: Mod/High Risk (score >= 2) VTE Pharm Contraindication: Active bleeding Caprini Risk Assessment Model Point Value = 1 Point Value = 2 Point Value = 3 Point Value = 5 Age 41-60 Minor surgery BMI > 25 kg/m2 Swollen legs Varicose veins or History of unexplained or recurrent spontaneous Oral contraceptives or hormone replacement Sepsis (< 1 month) Serious lung disease, including pneumonia (< 1 month) Abnormal pulmonary function Acute myocardial infarction Congestive heart failure (< 1 month) History of inflammatory bowel disease Medical patient at bed rest Age 61-74 Arthroscopic surgery Major open surgery (> 45 min) Laparoscopic surgery (> 45 min) Malignancy Confined to bed (> 72 hours) Immobilizing plaster cast Central venous access Age >= 75 History of VTE Family history of VTE Factor V Leiden Prothrombin [id number] Lupus anticoagulant Anticardiolipin antibodies Elevated serum homocysteine Heparin-induced thrombocytopenia Other congenital or acquired thrombophilia Stroke (< 1 month) Elective arthroplasty Hip, pelvis, or leg fracture Acute spinal cord injury (< 1 month) Prophylaxis Regimen Total Risk Factor Score Risk Level Prophylaxis Regimen 0-1 Low Early ambulation 2 Moderate Order ONE of the following: *Sequential Compression Device (SCD) *Heparin 5000 units SQ BID 3-4 Higher Order ONE of the following medications: *Heparin 5000 units SQ TID *Enoxaparin/Lovenox 40 mg SQ daily (WT < 150 kg, CrCl > 30 mL/min) *Enoxaparin/Lovenox 30 mg SQ daily (WT < 150 kg, CrCl > 10-29 mL/min) *Enoxaparin/Lovenox 30 mg SQ BID (WT < 150 kg, CrCl > 30 mL/min) AND/OR *Sequential Compression Device (SCD) 5 or more Highest Order ONE of the following medications: *Heparin 5000 units SQ TID (Preferred with Epidurals) *Enoxaparin/Lovenox 40 mg SQ daily (WT < 150 kg, CrCl > 30 mL/min) *Enoxaparin/Lovenox 30 mg SQ daily (WT < 150 kg, CrCl > 10-29 mL/min) *Enoxaparin/Lovenox 30 mg SQ BID (WT < 150 kg, CrCl > 30 mL/min) AND *Sequential Compression Device (SCD) Assessment and Plan Assessment and Plan Hematuria complicated by use of Eliquis -Patient with recent urinary retention from surgery, Ellington was used for 5 days and just removed last evening 7 PM -Ellington catheter was inserted in the emergency department, will maintain Ellington catheter at this time -Start Flomax daily -Urology consulted and recommended discontinuation of Eliquis at this time, may resume once urine remains yellow for at least 48 hours. Recommending discontinuation of Ellington after urine remains yellow after 48-72 hours, may be done in his office History of atrial fibrillation -Currently sinus rhythm at this time -Was anticoagulated on Eliquis, being held at this time due to hematuria DVT prevention -Sequential compression devices -Avoid chemical prophylaxis at this time secondary to gross hematuria Problem Qualifiers (1) Hematuria: Qualified Codes: R31.0 - Gross hematuria Yaya Ambrosio Aug 08, 2017 16:17
--- NOTE | 2017-08-08 17:15 | EKG ---
Date Performed: 08/08/2017 Time Performed: 11:49:27 PTAGE: 76 years EKG: SINUS BRADYCARDIA POSSIBLE LEFT ATRIAL ENLARGEMENT BORDERLINE LEFT AXIS DEVIATION POSSIBLE RIGHT VENTRICULAR CONDUCTION DELAY BORDERLINE ECG PREVIOUS TRACING : 07/20/2017 09.38 Compared to previous tracing, a flutter no longer present DOCTOR: Franny Silva Interpretating Date/Time 08/08/2017 17:15:00
[2017-08-08] MEDS: ACETAMINOPHEN 325 MG TAB PO PRN (20:06)
[2017-08-09] VITALS: BP 120/64; PULSE 80; RESP 20; TEMP 100.7; O2SAT 96
[2017-08-09] MEDS: ACETAMINOPHEN 325 MG TAB PO PRN ×2 (00:28→13:34)
[2017-08-09] MEDS: SODIUM CHLORIDE 0.9% FLUSH 10 ML FLUSH IV FLUSH SCH ×3 (00:28→21:00)
[2017-08-09] MEDS: SODIUM CHLOR 0.45% 1000 ML INJ 1,000 ML IV SCH ×2 (00:28→16:13)
[2017-08-09 03:50] VITALS: BP 105/55; PULSE 51; RESP 18; TEMP 101.4; O2SAT 94
[2017-08-09 04:00] VITALS: TEMP 99.5
[2017-08-09 06:39] LABS: AUTOMATED NEUTROPHIL # 13.4 TH/MM3 (1.8-7.7); BASOPHIL % 0.2 % (0.0-2.0); EOSINOPHIL # 0.2 TH/MM3 (0-0.4); EOSINOPHIL % 0.9 % (0.0-4.0); HEMATOCRIT 44.9 % (39.0-51.0); HEMOGLOBIN 15.1 GM/DL (13.0-17.0); LYMPH % 11.1 % (9.0-44.0); LYMPHOCYTE # 1.9 TH/MM3 (1.0-4.8); MEAN CELL VOLUME 97.8 FL (80.0-100.0); MEAN CORPUSCULAR HEMOGLOBIN 32.8 PG (27.0-34.0); MEAN CORPUSCULAR HGB CONC 33.6 % (32.0-36.0); MEAN PLATELET VOLUME 7.2 FL (7.0-11.0); MONOCYTE # 1.4 TH/MM3 (0-0.9); NEUT % 79.8 % (16.0-70.0); PLATELET COUNT 228 TH/MM3 (150-450); RED BLOOD COUNT 4.59 MIL/MM3 (4.50-5.90); RED CELL DISTRIBUTION WIDTH 11.9 % (11.6-17.2); WHITE BLOOD COUNT 16.9 TH/MM3 (4.0-11.0)
[2017-08-09 07:12] LABS: BICARBONATE 25.6 MEQ/L (21.0-32.0); CALCIUM 8.3 MG/DL (8.5-10.1); CREATININE 1.1 MG/DL (0.60-1.30)
[2017-08-09 07:50] VITALS: BP 128/60; PULSE 69; RESP 18; TEMP 99.7; O2SAT 97
[2017-08-09] MEDS ORDERED: cefTRIAXone INJ 1,000 MG in SODIUM CHLORIDE 0.9% INJ 100 ML IV SCH (09:00)
[2017-08-09] MEDS: TAMSULOSIN HCL 0.4 MG CAP PO SCH (09:50)
[2017-08-09] MEDS: DILTIAZEM-CD 180 MG CAP ER PO SCH (09:50)
--- NOTE | 2017-08-09 10:14 | HHI.PR ---
Subjective Remarks 76-year-old male seen in follow-up for hematuria and urinary retention. Patient developed fever overnight, worsening leukocytosis. Patient denies any new complaints. His urine color is yellow at this time. Hematuria appears to have resolved. Vital signs are stable, T-max 102.1 Objective Vitals Vital Signs Date Time Temp Pulse Resp B/P (MAP) Pulse Ox O2 Delivery O2 Flow Rate FiO2 08/09/17 07:50 99.7 69 18 128/60 (82) 97 08/09/17 04:00 99.5 08/09/17 00:00 100.7 80 20 120/64 (82) 96 08/08/17 21:30 101.3 08/08/17 20:00 102.1 77 20 127/66 (86) 97 08/08/17 15:10 99.3 62 20 154/70 (98) 97 08/08/17 14:47 64 18 97 08/08/17 13:26 63 18 140/70 (93) 97 Room Air 08/08/17 12:03 60 18 144/69 (94) 96 Room Air 08/08/17 11:43 96 Room Air 08/08/17 10:59 18 08/08/17 10:37 98.9 72 16 156/87 (110) 97 I/O 08/08/17 08/08/17 08/08/17 08/09/17 08/09/17 08/09/17 07:00 15:00 23:00 07:00 15:00 23:00 Intake Total 225 ml 580 ml 900 ml Output Total 350 ml 500 ml 1200 ml Balance -125 ml 80 ml -300 ml Intake Oral 480 ml IV Total 225 ml 100 ml 900 ml Output Urine Total 350 ml 500 ml 1200 ml # Bowel Movements 0 0 Result Diagram: 08/09/17 0455 08/09/17 0455 Objective Remarks GENERAL: Well-developed, well-nourished, in no acute distress. alert and orientated HEENT: Head is normocephalic without any lesions or masses noted. Facial features are symmetric. Eyes: Extraocular muscles are intact. Conjunctivae were clear. NECK: Supple without any masses. Trachea midline no deviation. No JVD, CARDIAC: Regular rhythm, regular rate. S1/S2 are heard. No murmurs gallops or rubs. LUNGS: Clear to auscultation bilaterally. No wheeze, rhonchi or rales. No use of accessory muscles on inspiration or expiration. ABDOMEN: Soft, nontender. Nondistended. Bowel sounds heard in all 4 quadrants. No organomegaly or masses. Negative rebound, negative guarding, Ellington in place urine is yellow at this time, no further hematuria or clots EXTREMITIES: No edema, pulses are equal bilaterally. No cyanosis or clubbing NEUROLOGY: Mood and affect appear appropriate. Cranial nerves II through XII grossly intact. Moving all extremities, speech is clear Urinary Catheter: Yes Assessment to: Continue Ellington insert reason: Obstruction/Retention Vascular Central Line Catheter: No A/P Assessment and Plan Sepsis -Patient now meets criteria with febrile illness, leukocytosis, urinary tract infection -We will continue patient on Rocephin -Continue to follow urine culture -Obtain blood cultures -Discussed with general surgery, secondary patient having recent surgery. Patient is outside the window of postop fever, likely secondary to urinary tract infection. They indicated that patient continue to get worse he will be happy to consult on the patient if needed. Hematuria complicated by use of Eliquis -Patient with recent urinary retention from surgery, Ellington was used for 5 days and just removed last evening 7 PM -Ellington catheter was inserted in the emergency department, will maintain Ellington catheter at this time -Continue Flomax daily -Urology consulted and recommended discontinuation of Eliquis at this time, may resume once urine remains yellow for at least 48 hours. Recommending discontinuation of Ellington after urine remains yellow after 48-72 hours, may be done in his office History of atrial fibrillation -Currently sinus rhythm at this time -Home medications have been continued -Was anticoagulated on Eliquis, being held at this time due to hematuria DVT prevention -Sequential compression devices -Avoid chemical prophylaxis at this time secondary to gross hematuria Discharge Planning Anticipate discharge once patient is afebrile, urine culture is available. Blood cultures remain negative Attending Statement The exam, history, and the medical decision-making described in the above note were completed with the assistance of the mid-level provider. I reviewed and agree with the findings presented. I attest that I had a [id number] encounter with the patient on the same day, and personally performed and documented my assessment and findings in the medical record. Patient seen and examined. Meet criteria for sepsis. urine growing pseudomonas. No improvement with Rocephin. Will broaden coverage with Cefepime. Follow cultured in AM. If worsening or not improving, will consider double coverage. Yaya Ambrosio Aug 09, 2017 10:14 Tami Herman MD Aug 09, 2017 14:39
[2017-08-09 11:50] VITALS: BP 133/62; PULSE 70; RESP 18; TEMP 100.6; O2SAT 97
[2017-08-09] MEDS ORDERED: CEFEPIME INJ 2,000 MG in SODIUM CHLORIDE 0.9% INJ 100 ML IV SCH (16:00)
[2017-08-09] MEDS ORDERED: IBUPROFEN 600 MG TAB PO PRN (16:00)
[2017-08-09] MEDS: LEVOFLOXACIN 750 MG PREMIX INJ 150 ML IV SCH (18:18)
[2017-08-09 20:00] VITALS: BP 94/52; PULSE 54; RESP 20; TEMP 96.2; O2SAT 97
[2017-08-10] VITALS: BP 113/61; PULSE 65; RESP 20; TEMP 96; O2SAT 98
[2017-08-10] MEDS: SODIUM CHLOR 0.45% 1000 ML INJ 1,000 ML IV SCH ×3 (00:12→10:16)
[2017-08-10] MEDS: CEFEPIME INJ 2,000 MG in SODIUM CHLORIDE 0.9% INJ 100 ML IV SCH ×4 (00:12→23:35)
[2017-08-10] MEDS: ACETAMINOPHEN 325 MG TAB PO PRN (06:02)
[2017-08-10 06:47] LABS: AUTOMATED NEUTROPHIL # 11.6 TH/MM3 (1.8-7.7); BASOPHIL % 0.3 % (0.0-2.0); EOSINOPHIL # 0.2 TH/MM3 (0-0.4); EOSINOPHIL % 1.4 % (0.0-4.0); HEMATOCRIT 41.7 % (39.0-51.0); HEMOGLOBIN 14.3 GM/DL (13.0-17.0); LYMPH % 7.4 % (9.0-44.0); MEAN CELL VOLUME 96.5 FL (80.0-100.0); MEAN CORPUSCULAR HEMOGLOBIN 33.2 PG (27.0-34.0); MEAN CORPUSCULAR HGB CONC 34.4 % (32.0-36.0); MEAN PLATELET VOLUME 7.2 FL (7.0-11.0); MONO % 7.4 % (0.0-8.0); NEUT % 83.5 % (16.0-70.0); PLATELET COUNT 227 TH/MM3 (150-450); RED BLOOD COUNT 4.32 MIL/MM3 (4.50-5.90); RED CELL DISTRIBUTION WIDTH 12.8 % (11.6-17.2); WHITE BLOOD COUNT 13.8 TH/MM3 (4.0-11.0)
[2017-08-10 06:57] LABS: CALCIUM 8.2 MG/DL (8.5-10.1)
[2017-08-10 06:58] LABS: BICARBONATE 23.9 MEQ/L (21.0-32.0); MAGNESIUM 2.1 MG/DL (1.5-2.5)
[2017-08-10 07:01] LABS: CREATININE 0.89 MG/DL (0.60-1.30)
[2017-08-10 08:00] VITALS: BP 117/58; PULSE 57; RESP 17; TEMP 98.5; O2SAT 97
[2017-08-10] MEDS: DILTIAZEM-CD 180 MG CAP ER PO SCH (10:16)
[2017-08-10] MEDS: TAMSULOSIN HCL 0.4 MG CAP PO SCH (10:16)
[2017-08-10] MEDS: SODIUM CHLORIDE 0.9% FLUSH 10 ML FLUSH IV FLUSH SCH ×2 (10:17→20:42)
--- NOTE | 2017-08-10 10:32 | HHI.PR ---
Subjective Remarks Patient seen and examined today for follow-up on urinary retention, urinary tract infection, sepsis. Patient is doing much better. T-max 100.6. Patient is improving and feeling much better today. Discussed with patient and family extensively on continuation of current treatment plan at this time for at least another 24 hours until we can confirm that he is not septic. plan to discharge home tomorrow. [place] [place] them on continuation of Ellington upon discharge and follow- up with urologist. Objective Vitals Vital Signs Date Time Temp Pulse Resp B/P (MAP) Pulse Ox O2 Delivery O2 Flow Rate FiO2 08/10/17 08:18 18 08/10/17 08:00 98.5 57 17 117/58 (77) 97 08/10/17 00:00 96.0 65 20 113/61 (78) 98 08/09/17 20:00 96.2 54 20 94/52 (66) 97 08/09/17 17:28 18 08/09/17 11:50 100.6 70 18 133/62 (85) 97 I/O 08/09/17 08/09/17 08/09/17 08/10/17 08/10/17 08/10/17 07:00 15:00 23:00 07:00 15:00 23:00 Intake Total 900 ml 720 ml 2600 ml Output Total 1200 ml 600 ml 3250 ml 1000 ml Balance -300 ml 120 ml -650 ml -1000 ml Intake Oral 720 ml 1500 ml IV Total 900 ml 1100 ml Output Urine Total 1200 ml 600 ml 3250 ml 1000 ml # Bowel Movements 0 0 1 Result Diagram: 08/10/17 0610 08/10/17 0610 Objective Remarks GENERAL: Well-developed, well-nourished, in no acute distress. alert and orientated HEENT: Head is normocephalic without any lesions or masses noted. Facial features are symmetric. Eyes: Extraocular muscles are intact. Conjunctivae were clear. NECK: Supple without any masses. Trachea midline no deviation. No JVD, CARDIAC: Regular rhythm, regular rate. S1/S2 are heard. No murmurs gallops or rubs. LUNGS: Clear to auscultation bilaterally. No wheeze, rhonchi or rales. No use of accessory muscles on inspiration or expiration. ABDOMEN: Soft, nontender. Nondistended. Bowel sounds heard in all 4 quadrants. No organomegaly or masses. Negative rebound, negative guarding, Ellington in place urine is yellow at this time, no further hematuria or clots EXTREMITIES: No edema, pulses are equal bilaterally. No cyanosis or clubbing NEUROLOGY: Mood and affect appear appropriate. Cranial nerves II through XII grossly intact. Moving all extremities, speech is clear Urinary Catheter: Yes Assessment to: Continue Ellington insert reason: Obstruction/Retention Vascular Central Line Catheter: No A/P Assessment and Plan Sepsis -Patient now meets criteria with febrile illness, leukocytosis, urinary tract infection -Rocephin was discontinued, patient started on cefepime, Levaquin -Urine culture indicating pseudomonas aeruginosa, likely hospital-acquired urinary tract infection from Ellington -Blood cultures are pending -Discussed with general surgery, secondary patient having recent surgery. Patient is outside the window of postop fever, likely secondary to urinary tract infection. They indicated that patient continue to get worse he will be happy to consult on the patient if needed. Hematuria complicated by use of Eliquis, resolved -Patient with recent urinary retention from surgery, Ellington was used for 5 days and removed 7 PM day before presenting to the hospital -Ellington catheter was inserted in the emergency department, will maintain Ellington catheter at this time -Continue Flomax daily -Urology consulted and recommended discontinuation of Eliquis at this time, may resume once urine remains yellow for at least 48 hours. Recommending discontinuation of Ellington after urine remains yellow after 48-72 hours, may be done in his office History of atrial fibrillation -Currently sinus rhythm at this time -Home medications have been continued -Was anticoagulated on Eliquis, anticipate resuming tomorrow if urine remains clear DVT prevention -Sequential compression devices Discharge Planning Anticipate discharge tomorrow if patient remains stable Yaya Ambrosio Aug 10, 2017 10:32
[2017-08-10 13:31] VITALS: BP 119/59; PULSE 58; RESP 17; TEMP 97.6; O2SAT 99
[2017-08-10 16:00] VITALS: BP 133/64; PULSE 60; RESP 16; TEMP 100.3; O2SAT 97
[2017-08-10] MEDS: LEVOFLOXACIN 750 MG PREMIX INJ 150 ML IV SCH (17:46)
[2017-08-10 20:00] VITALS: BP 119/60; PULSE 59; RESP 20; TEMP 99.2; O2SAT 97
[2017-08-11] VITALS: BP 118/61; PULSE 62; RESP 20; TEMP 98.4; O2SAT 98
[2017-08-11] MEDS: TAMSULOSIN HCL 0.4 MG CAP PO SCH (08:25)
[2017-08-11] MEDS: DILTIAZEM-CD 180 MG CAP ER PO SCH (08:25)
[2017-08-11] MEDS: SODIUM CHLORIDE 0.9% FLUSH 10 ML FLUSH IV FLUSH SCH (08:25)
[2017-08-11] MEDS: CEFEPIME INJ 2,000 MG in SODIUM CHLORIDE 0.9% INJ 100 ML IV SCH (08:26)
[2017-08-11 08:54] VITALS: BP 105/53; PULSE 56; RESP 16; TEMP 97.8; O2SAT 98
[2017-08-11] MEDS ORDERED: APIXABAN 5 MG TABLET PO SCH (10:00)
[2017-08-11] MEDS ORDERED: TAMS5CAP PO (11:29)
[2017-08-11] MEDS ORDERED: LEVO750T3 PO (11:29)
--- NOTE | 2017-08-11 11:37 | HHI.DCPOC ---
Discharge Care Plan Diagnosis: (1) Hematuria (2) Paroxysmal atrial fibrillation Goals to Promote Your Health * To prevent worsening of your condition and complications * To maintain your health at the optimal level Directions to Meet Your Goals Take your medications as prescribed Follow your dietary instruction Follow activity as directed Keep your appointments as scheduled Take your immunizations and boosters as scheduled If your symptoms worsen call your PCP, if no PCP go to Urgent Care Center or Emergency Room Smoking is Dangerous to Your Health. Avoid second hand smoke Call the 24-hour hour crisis hotline for domestic abuse at Yaya Ambrosio Aug 11, 2017 11:36
--- NOTE | 2017-08-11 11:45 | HHI.DS ---
Discharge Summary Admission Date Aug 09, 2017 at 13:35 Discharge Date: Aug 11, 2017 Admitting Diagnosis Gross hematuria. Paroxysmal atrial fibrillation. (1) Hematuria ICD Code: R31.9 - Hematuria, unspecified Diagnosis: Principal Status: Acute Procedures None Brief History - From Admission 76-year-old male with known history of atrial fibrillation on anticoagulation, who underwent recent surgery by Dr. 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 Prior to discharge from the hospital after surgery patient was unable to urinate with outlet obstruction. Patient had Ellington catheter remain in place for approximately 5 days and they followed up with Dr. Carmona last evening at 7 PM. The Ellington was removed at that time and the patient went home without any complications. Patient indicates that he was urinating fine but throughout the evening started developing more burning sensation on urination. And then this morning when he got up he noticed that he was urinating blood so he called his physician who notified him to go to the emergency department for evaluation. Patient did have workup done which did show gross hematuria. Ellington catheter was reinserted. An ER physician recommended that the patient be observed in the hospital for further evaluation and management. Urology was consulted for further recommendations. CBC/BMP: 08/10/17 0610 08/10/17 0610 Significant Findings Laboratory Tests Test 08/08/17 11:41 08/09/17 04:55 08/10/17 06:10 White Blood Count 12.9 TH/MM3 (4.0-11.0) 16.9 TH/MM3 (4.0-11.0) 13.8 TH/MM3 (4.0-11.0) Mean Corpuscular Hemoglobin Concent 31.2 % (32.0-36.0) Mean Platelet Volume 6.6 FL (7.0-11.0) Neutrophils (%) (Auto) 81.5 % (16.0-70.0) 79.8 % (16.0-70.0) 83.5 % (16.0-70.0) Lymphocytes (%) (Auto) 8.9 % (9.0-44.0) 7.4 % (9.0-44.0) Basophils (%) (Auto) 3.5 % (0.0-2.0) Neutrophils # (Auto) 10.4 TH/MM3 (1.8-7.7) 13.4 TH/MM3 (1.8-7.7) 11.6 TH/MM3 (1.8-7.7) Basophils # (Auto) 0.5 TH/MM3 (0-0.2) Blood Urea Nitrogen 19 MG/DL (7-18) 19 MG/DL (7-18) Random Glucose 121 MG/DL (74-106) 118 MG/DL (74-106) Anion Gap 4 MEQ/L (5-15) Estimat Glomerular Filtration Rate 72 ML/MIN (>89) 65 ML/MIN (>89) 83 ML/MIN (>89) Monocytes # (Auto) 1.4 TH/MM3 (0-0.9) 1.0 TH/MM3 (0-0.9) Calcium Level 8.3 MG/DL (8.5-10.1) 8.2 MG/DL (8.5-10.1) Red Blood Count 4.32 MIL/MM3 (4.50-5.90) PE at Discharge GENERAL: Well-developed, well-nourished, in no acute distress. alert and orientated HEENT: Head is normocephalic without any lesions or masses noted. Facial features are symmetric. Eyes: Extraocular muscles are intact. Conjunctivae were clear. NECK: Supple without any masses. Trachea midline no deviation. No JVD, CARDIAC: Regular rhythm, regular rate. S1/S2 are heard. No murmurs gallops or rubs. LUNGS: Clear to auscultation bilaterally. No wheeze, rhonchi or rales. No use of accessory muscles on inspiration or expiration. ABDOMEN: Soft, nontender. Nondistended. Bowel sounds heard in all 4 quadrants. No organomegaly or masses. Negative rebound, negative guarding, Ellington in place urine is yellow at this time, no further hematuria or clots EXTREMITIES: No edema, pulses are equal bilaterally. No cyanosis or clubbing NEUROLOGY: Mood and affect appear appropriate. Cranial nerves II through XII grossly intact. Moving all extremities, speech is clear Hospital Course 76-year-old male with known history of atrial fibrillation on anticoagulation who underwent recent surgery with Dr. Carmona for left inguinal hernia repair with mesh and excision of lipoma spermatic cord who was discharged to the hospital with Ellington in place due to postop urinary retention. Patient did go to Dr. Carmona's office and the Ellington was removed at 7 PM the day prior to being admitted to the hospital. The patient presented because he stated that he was urinating pure blood. Patient had workup done emergency department recommend admission the hospital. Urologist was consulted who recommended maintenance of Ellington catheter with IV fluids until urine is clear, discontinuation of Eliquis until urine was clear for 48 hours. Flomax was initiated at 0.8 mg per initial dose and then 0.4 mg daily. Patient tolerated treatment well his urine did return to normal color within the first 24 hours. However the patient continued to have intermittent fever, chills. Urinalysis did indicate urine tract infection. Urine culture was monitored and did indicate Pseudomonas. Originally patient was on Rocephin and that was subsequent he changed to cefepime and Levaquin with significant improvement. Patient remains afebrile at this time. Blood cultures were ascertained and blood cultures have remained negative for over 2 days. Patient states that he is feeling much better. He is very eager to go home. No longer feel any type of fever, chills, abdominal pain. Urologist recommended maintenance of Ellington upon discharge which can be removed in his office. Patient does have an appointment for follow-up in [address] Faustin office. This morning patient did have a papular rash on his back. There was no involvement of his sides or anterior chest. No sign of any exudates or purulence. Patient states that is very pruritic. Topical cream did help with control of his symptoms. Patient was notified that if his rash anywhere she should follow-up with his biomedical doctor for further evaluation and management. Patient clinically stable this time. Plan discharge accordingly. Pt Condition on Discharge: Stable Discharge Disposition: Discharge Home Discharge Time: > 30 minutes Discharge Instructions DIET: Follow Instructions for: Heart Healthy Diet Activities you can perform: Regular-No Restrictions Follow up Referrals: PCP Follow-up - 1 Week Urology - 08/14/17 with Johnathon Faustin MD New Medications: Levofloxacin (Levofloxacin) 750 Mg Tablet 750 MG PO DAILY for Infection for 7 Days, #7 TAB 0 Refills Tamsulosin (Flomax) 0.4 Mg Cap 0.4 MG PO DAILY for urinary retention for 30 Days, #30 CAP Continued Medications: Apixaban (Eliquis) 5 Mg Tab 5 MG PO BID for Blood Clot Prevention, #60 TAB 0 Refills Diltiazem ER 24 HR (Diltiazem ER 24 HR) 360 Mg Caper 360 MG PO DAILY, #30 CAP 0 Refills Yaya Ambrosio Aug 11, 2017 11:45
[2017-08-11 12:14] VITALS: BP 111/57; PULSE 51; RESP 17; TEMP 98.1; O2SAT 97
== END 2017-08-11 12:36 | disposition home or self-care (01) | DRG 813 ==
LOC: PHED 10:28 → PHEDA 13:25 → PH3B 15:07 → OBSVTOIN 08-09 13:35
PROVIDERS: ADMIT Hospitalist; ATTEND Hospitalist
DX: D68.32 Hemorrhagic disorder due to extrinsic circulating anticoagulants (principal); A41.52 Sepsis due to Pseudomonas; T83.511A Infection and inflammatory reaction due to indwelling urethral catheter, initial encounter; N39.0 Urinary tract infection, site not specified; I48.0 Paroxysmal atrial fibrillation; R31.0 Gross hematuria; T45.515A Adverse effect of anticoagulants, initial encounter; R21 Rash and other nonspecific skin eruption; H91.90 Unspecified hearing loss, unspecified ear; Z79.01 Long term (current) use of anticoagulants
CPT/HCPCS: 80048; 80053; 81001; 83735; 85025; 85610; 85730; 87040; 87077; 87086; 87186; 93005; J0692; J0696; J1956; J7030